=== PATIENT | male | born 1960 | race Caucasian/White ===

== ENCOUNTER 2025-01-03 19:05 | Inpatient (IN) | payer BC, SELFPAY ==
[2025-01-03] VITALS (12 sets, daily range): BP systolic 100–139; BP diastolic 76–108; PULSE 68–106; RESP 15–24; TEMP 36.7–36.9; O2SAT 93–98; BMI 26.4
--- NOTE | 2025-01-03 19:16 | ECG_ITS ---
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1960 Requested By: Raciel Hagan Order Number: [id number] Reading MD: NIRMAL EISENBERG Measurements Intervals [place] Rate: 198 P: 0 MD: 0 QRS: 94 QRSD: 124 T: -63 QT: 227 QTc: 412 Interpretive Statements SUPRAVENTRICULAR TACHYCARDIAW WITH ABBERENT CONDUCTION RIGHT BUNDLE BRANCH BLOCK [120+ ms QRS DURATION, UPRIGHT V1, 40+ ms S IN I/aVL/V4/V5/V6] ST DEVIATION AND MODERATE T-WAVE ABNORMALITY, CONSIDER LATERAL ISCHEMIA [-0.1+ mV T-WAVE IN I/aVL/V5/V6] ST DEVIATION AND MODERATE T-WAVE ABNORMALITY, CONSIDER INFERIOR ISCHEMIA [-0.1+ mV T-WAVE IN II/aVF] CRITICAL TEST RESULT No previous ECG available for comparison Electronically Signed On 01-11-2025 21:40:33 CDT by NIRMAL EISENBERG [email or web address]
--- NOTE | 2025-01-03 19:17 | XRR_ITS ---
PROCEDURE INFORMATION: Exam: XR Chest Exam date and time: 01/03/2025 7:22 PM Age: 64 years old Clinical indication: Pain; Chest pressure; Prior surgery; Surgery date: 6+ months; Surgery type: Stent in heart; Additional info: Cp TECHNIQUE: Imaging protocol: Radiologic exam of the chest. Views: 1 view. COMPARISON: No relevant prior studies available. FINDINGS: Lungs: Mild left basilar linear atelectasis versus scarring. No consolidation. Pleural spaces: Unremarkable. No pleural effusion. No pneumothorax. Heart/Mediastinum: Unremarkable. No cardiomegaly. Bones/joints: Thoracic spondylosis. XR/XR chest 1V portable [id number] IMPRESSION: No acute findings.
[2025-01-03 19:28] LABS: Basophils # 0.1 10^3/uL (0.0-0.1); Basophils % 0.9 %; Eosinophils % 0.3 %; Hematocrit 42.5 % (37-53); Lymphocytes # 1.5 10^3/uL (0.8-4.8); Mean Corpuscular HGB Conc 33.4 g/dL (30-55); Mean Corpuscular Volume 95.7 fl (82-101); Mean Platelet Volume 9.5 fL (7.4-10.4); Monocytes # 0.9 10^3/uL (0.2-0.9); Monocytes % 9.2 %; Neutrophils # 6.85 10^3/uL (1.8-7.7); Neutrophils % 73.3 %; Nucleated Red Blood Cells % 0 %; Platelet Count 289 10^3/cmm (157-399); Red Blood Count 4.44 10^6/uL (3.85-5.65); Red Cell Distribution Width 12.8 % (12.1-15.1); White Blood Count 9.35 10^3/uL (3.29-11.43)
[2025-01-03] MEDS: aspirin 81 mg Chew Tablet 324 MG PO (19:33)
[2025-01-03] MEDS: sodium chloride 0.9% 1,000 ML 999 ML IV (19:33)
[2025-01-03 19:41] LABS: INR 0.89 (0.8-1.2)
[2025-01-03 19:42] LABS: Partial Thromboplastin Time 26.4 SECONDS (23.9-36.7)
--- NOTE | 2025-01-03 19:48 | ED_ITS ---
HPI - Chest Pain 2 General: Chief Complaint: Chest Pain Stated Complaint: CP Time Seen by Provider: 01/03/25 19:09 History of Present Illness: 64-year-old male patient with a history of coronary disease. Tells me he had a stent put in his right coronary artery in 2005. No interventions since. 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 He felt well prior. No prior illnesses. Mild shortness of breath. Symptoms are improved currently. Related Data Allergies Allergy/AdvReac Type Severity Reaction Status Date / Time atorvastatin (From Lipitor) Allergy ADR-Cramping Verified 01/03/25 19:26 of the Muscles Physical Exam 2 Const: COMMON NORMALS: no acute distress GENERAL APPEARANCE: cooperative; not ill appearing and not frail appearing HENMT: COMMON NORMALS: normocephalic, atraumatic and Normal external nose present HEAD & SCALP: normocephalic and atraumatic FACE & SINUS: normal facial exam and face symmetric NOSE: Normal external nose present Eye: COMMON NORMALS: Equal, round and reactive pupils present and EOMs intact bilaterally PUPIL: Yes Equal, round and reactive pupils present Neck/C-Spine: GENERAL: Yes trachea midline Chest: CHEST: Yes Symmetrical chest wall rise Resp: COMMON NORMALS: normal respiratory effort, No retractions, No use of accessory muscles and clear to auscultation bilaterally AUSCULTATION: clear to auscultation bilaterally Cardio: RATE: tachycardic RHYTHM: abnormal rhythm irregularly irregular GI: COMMON NORMALS: Normal to inspection, nondistended, normoactive bowel sounds present Extremity: COMMON NORMALS: no pedal edema Neuro: DEREK COMA SCALE: document GCS findings [place] coma scale eye opening: Spontaneous Derek coma scale verbal response: Orientated Derek coma scale motor response: Obey commands [place] coma scale total score: 15 S ENSORY EXAM: Yes extremities (intact) Psych: COMMON NORMALS: speech normal SPEECH: Yes normal speech Skin: COMMON NORMALS: no rashes or lesions noted GENERAL SKIN EXAM: no rashes or lesions noted Course 2 Vital Signs: Vital signs: Vital Signs Temperature 98.1 F 01/03/25 19:13 Pulse Rate 106 H 01/03/25 19:13 Respiratory Rate 22 H 01/03/25 19:13 Blood Pressure 135/90 01/03/25 19:13 Pulse Oximetry 96 01/03/25 19:13 Oxygen Delivery Me thod Room Air 01/03/25 19:13 MDM - Chest Pain Medical Decision Making Patient presents essentially in rapid atrial fibrillation, although the rate is still fast, diagnostics are difficult. On presentation to the room, his rate is in the low 90s. He has episodes of what appears to be SVT on the monitor with significantly increased heart rate, but also episodes of significant pauses with temporary rates in the mid 40s. Because of this, rate lowering drugs such as adenosine, sotalol, diltiazem are not used. Similarly, avoiding a bolus dose of amiodarone, as could invoke an escape pause. Instead, we will elect to start amiodarone drip at 1 mg/min. Also starting fluids, which may be the cause or culprit. CBC is normal. No acute ST wave changes on EKG or monitor once the patient is slowed down. Spoke with cardiology. They agree with treatment thus far. Recommendations are Lovenox, continued amiodarone, fluid, urine drug screen for completeness. Spoke with hospitalist. He will go to the ICU. Lab Data 01/03/25 19:19 01/03/25 19:19 Radiology Impressions Chest X-Ray 01/03/25 19:17 IMPRESSION: No acute findings. Laboratory Results WBC 9.35 10^3/uL (3.29-11.43) 01/03/25 19:19 RBC 4.44 10^6/uL (3.85-5.65) 01/03/25 19:19 Hgb 14.20 g/dL (11.27-16.99) 01/03/25 19:19 Hct 42.5 % (37-53) 01/03/25 19:19 MCV 95.7 fl (82-101) 01/03/25 19:19 MCH 32.0 pg (27-33) 01/03/25 19:19 MCHC 33.4 g/dL (30-55) 01/03/25 19:19 RDW 12.8 % (12.1-15.1) 01/03/25 19:19 Plt Count 289 10^3/cmm (157-399) 01/03/25 19:19 MPV 9.5 fL (7.4-10.4) 01/03/25 19:19 Neut % (Auto) 73.3 % 01/03/25 19:19 Lymph % (Auto) 16.0 % 01/03/25 19:19 Gove % (Auto) 9.2 % 01/03/25 19:19 Eos % (Auto) 0.3 % 01/03/25 19:19 Baso % (Auto) 0.9 % 01/03/25 19:19 Neut # (Auto) 6.85 10^3/uL (1.8-7.7) 01/03/25 19:19 Lymph # (Auto) 1.5 10^3/uL (0.8-4.8) 01/03/25 19:19 Gove # (Auto) 0.9 10^3/uL (0.2-0.9) 01/03/25 19:19 Eos # (Auto) 0.0 10^3/uL (0.0-0.8) 01/03/25 19:19 Baso # (Auto) 0.1 10^3/uL (0.0-0.1) 01/03/25 19:19 Nucleated RBC % (auto) 0 % 01/03/25 19:19 Nucleated RBCs # 0.0 /100WBC 01/03/25 19:19 PT 12.70 SECONDS (12.1-14.9) 01/03/25 19:19 INR 0.89 (0.8-1.2) 01/03/25 19:19 APTT 26.4 SECONDS (23.9-36.7) 01/03/25 19:19 Sodium 136 mmol/L (136-145) 01/03/25 19:19 Potassium 4.3 mmol/L (3.5-5.1) 01/03/25 19:19 Chloride 101 mmol/L (98-107) 01/03/25 19:19 Carbon Dioxide 22 mmol/L (22-29) 01/03/25 19:19 Anion Gap 17.3 (5-19) 01/03/25 19:19 BUN 21 mg/dL (8-23) 01/03/25 19:19 Creatinine 0.7 mg/dL (0.7-1.2) 01/03/25 19:19 GFR Calculation 113.9 mL/min (90-130) 01/03/25 19:19 Glucose 136 mg/dL (65-115) H 01/03/25 19:19 Calculated Osmolality 287 mOsm/kg (285-295) 01/03/25 19:19 Calcium 9.3 mg/dL (8.5-10.5) 01/03/25 19:19 Total Bilirubin 0.3 mg/dL (0.15-1.2) 01/03/25 19:19 AST 23 U/L (0-40) 01/03/25 19:19 ALT 18 U/L (0-41) 01/03/25 19:19 Alkaline Phosphatase 69 U/L (40-130) 01/03/25 19:19 Creatine Kinase 313 U/L (39-308) H 01/03/25 19:19 Troponin T Baseline 18 ng/L (0-15) H 01/03/25 19:19 NT-Pro-B Natriuret Pep 280 pg/mL (0-125) H 01/03/25 19:19 Total Protein 7.4 g/dL (6.6-8.7) 01/03/25 19:19 Albumin 4.7 g/dL (3.5-5.2) 01/03/25 19:19 Globulin 2.7 g/dL (1.3-4.6) 01/03/25 19:19 All radiology interpretation(s) finalized by discharge Critical Care Time 2 Critical Care Time: Critical Care Time: Yes Total Critical Care Time: 35 Attestation: This case had a high probability of a clinically significant, sudden, or life threatening deterioration of this patient's condition which required my full and direct attention, intervention and personal management. Time is independent of any procedures performed. 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
[2025-01-03 19:51] LABS: Alanine Aminotransferase 18 U/L (0-41); Albumin Level 4.7 g/dL (3.5-5.2); Alkaline Phosphatase 69 U/L (40-130); Anion Gap 17.3 (5-19); Aspartate Amino Transferase 23 U/L (0-40); Blood Urea Nitrogen 21 mg/dL (8-23); Calcium 9.3 mg/dL (8.5-10.5); Carbon Dioxide 22 mmol/L (22-29); Chloride 101 mmol/L (98-107); Creatine Phosphokinase 313 U/L (39-308); Globulin 2.7 g/dL (1.3-4.6); Glomerular Filtration Rate 113.9 mL/min (90-130); Glucose 136 mg/dL (65-115); Osmolality Calculated 287 mOsm/kg (285-295); Potassium 4.3 mmol/L (3.5-5.1); Sodium 136 mmol/L (136-145); Total Bilirubin 0.3 mg/dL (0.15-1.2); Total Protein 7.4 g/dL (6.6-8.7)
[2025-01-03 19:52] LABS: Troponin(5th) Baseline 18 ng/L (0-15)
[2025-01-03 19:59] LABS: NT Pro B Type Natriuretic Pept 280 pg/mL (0-125)
--- NOTE | 2025-01-03 20:41 | P.HP_ITS ---
Providers/Chief Complaint 2 Admitting Physician: Clarisse Nye MD Chief Complaint: CP History of Present Illness Leela Elizondo is a 64 year old male w/ CAD s/p 1 stent to the RCA in 2003 and chronic back pain, who presents to the ED on 01/03/2025 w/ complaints of pain between his shoulder. The patient was at the [employer], where he was an active participant. 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 He sat down, consumed a bottle of water but his light headedness kept getting worse, so his friend brought him to the ED. He denies dizziness, syncope, palpitations or chest pain/pressure. He states that he did have discomfort in his back, between his shoulder blades. He denies SOB, cough, wheezing, visual disturbances, fever, chills, GI or symptoms. In the ED, his vital signs were significant for tachycardia to 106bpm and tachypneic to 22. His initial EKG showed a A-fib with RVR, w/HR of 198. His CBC was unremarkable. According to the ED physician, the patient's HR then decreased to 90s then bradycardic to 45bpm then back up then 90s and then tachycardic again. His initial troponin was minimally elevated to 18, and repeat minimally decreased. His proBNP was 280. His CK was 313. His UA was unremarkable except for a few hyaline casts. His UDS was negative. His CXR showed no acute findings. Given his erratic HR and arrhythmia, he was given 1L NS bolus, and started on an amiodarone infusion. Cardiology was called by the ED physician, who was in agreement with amiodarone infusion and admission to the ICU for further monitoring & management. Review of Systems 2 Narrative: Constitutional: (-) fever(s), (-) chills, (-) body aches, (-) change in appetite, (-) change in weight, (-) fatigue, (-) malaise, (-) night sweats, (-) diaphoresis Eyes: (-) change in vision, (-) blurry vision, (-) diplopia, (-) floaters, ENT: (-) ear pain, (-) ear discharge, (-) aural fullness, (-) tinnitus, (-)nasal discharge, (-)nasal congestion, (-) post nasal drip, (-)dysphagia, (- )odynophagia, (-)hoarseness, Card: (-) Chest pain, (-) palpitations, (-) pedal edema, (-) orthopnea, (-) lightheadedness, (-) syncope, (-) pre-syncope, (-) leg pain with exertion Resp: (-)dyspnea, (-)dyspnea on exertion, (-) cough, (-) wheezing, (-) hemoptysis GI: (-) abdominal pain, (-) nausea, (-) vomiting, (-) hematemesis, (-) diarrhea, (-) constipation, (-) hematochezia, (-) melena : (-) flank pain, (-) dysuria, (-) hematuria, (-) urinary urgency, (-) urinary frequency, (-)oliguria, (-) difficulty voiding, (-) urinary incontinence, (-) urinary hesitancy, (-) dribbling, (-) nocturia, (-) genital pruritis, (-)vaginal odor, (-) vaginal discharge, (-) vaginal bleeding, (-) dysmenorrhea MSK: (-) myalgias, (-) arthralgias Skin/Breast: (-) rash, (-) sores, (-) new lesions, (-) breast tenderness, (-) breast pain, or (-) nipple discharge Neuro: (-) headaches, (-) dizziness, (-) generalized weakness, (-) weakness in the extremities, (-) numbness in extremities, (-) tingling, (-) frequent falls, (-) Slurred speech present, (-) seizure-like activity, (-) involuntary movements, (-) restless legs Psych: (-) anxiety, (-) depression, (-)paranoia, (-) visual hallucinations, (-) auditory hallucinations, (-)tactile hallucinations, (-) suicidal ideation, (-) homicidal ideation Endo: (-) polyuria, (-) polydipsia, (-) polyphagia, (-)cold intolerance, (-) heat intolerance Heme/Lymph: (-) easy bruising, (-) easy bleeding, (-) petechiae, (-) purpura, (- ) enlarged lymph nodes, (-) tender lymph nodes Allergy/Immunlogy: (-) food intolerance, (-) hives/urticaria, (-) itchy/watery eyes, (-) tongue/throat swelling, (-) facial swelling, Const: Reports: malaise; Denies: fever(s), chills, change in appetite, fatigue or diaphoresis Eyes: Denies: change in vision ENMT: Reports: other (no dysphagia or sore throat); Denies: odynophagia, nasal discharge or nasal congestion Card: Reports: lightheadedness; Denies: chest pain, palpitations or syncope Resp: Denies: dyspnea, productive cough or wheezing GI: Denies: abdominal pain, nausea, vomiting, diarrhea, constipation, hematochezia or melena : Denies: dysuria, urinary frequency, urinary urgency or hematuria Musc: Reports: other (myalgias); Denies: joint pain Skin/Breast: Denies: rash, sores or new lesions Neuro: Denies: headache(s) or dizziness Endo: Denies: polyuria, polydipsia, cold intolerance or heat intolerance Nader/Lymph: Reports: easy bruising; Denies: easy bleeding Medications/Allergies Home Medications ?Medication ?Instructions ?Recorded ?Confirmed ?Last Taken ?Type aspirin 81 mg tablet 81 mg PO DAILY 01/04/2512/0801/03/25 08:00 History lisinopril 20 mg tablet 20 mg PO 1XD 01/04/2501/03/25 08:00 History 20 metoprolol succinate 50 mg 50 mg PO 1XD 01/04/2501/0401/03/25 08:00 History tablet,extended release 24 hr 50 mg Allergies Allergy/AdvReac Type Severity Reaction Status Date / Time atorvastatin (From Lipitor) Allergy ADR-Cramping Verified 01/03/25 19:26 of the Muscles PFSH Acute 2 PFSH: Medical History (Updated 01/04/25 @ 04:14 by Clarisse Nye MD) Hyperlipidemia HTN (hypertension) Coronary artery disease Surgical History (Updated 01/04/25 @ 02:45 by Clarisse Nye MD) Stented coronary artery s/p 1 stent to the RCA in 2003 at [facility] in [place], [place] Family History (Updated 01/04/25 @ 02:47 by Clarisse Nye MD) Father Congestive heart failure (CHF) Heart disease Father had a Myocardial Infarction Social History (Updated 01/04/25 @ 02:54 by Clarisse Nye MD) Smoking and tobacco/nicotine status: former use of tobacco/nicotine Quit status (tobacco/nicotine): has quit using Year quit tobacco: 2003 Former quit date comment: smoked 1ppd x 20-25yrs. Alcohol intake: current Alcohol intake frequency: other Alcohol type: beer Alcohol use comment: 4-10 beers total in a weekend. Substance/Drug Use: never Vitals/I&O/Wt Last Vital Signs Temp 98.1 F 01/03/25 19:13 Pulse 106 H 01/03/25 19:13 Resp 22 H 01/03/25 19:13 BP 135/90 01/03/25 19:13 Pulse Ox 96 01/03/25 19:13 O2 Del Method Room Air 01/03/25 19:13 Weight last 48 hrs Weight 86.183 kg Physical Exam 2 Narrative: Constitutional: GENERAL APPEARANCE: cooperative, comfortable and appears older than stated age; not combative, not disheveled, not ill appearing and not frail appearing HENT: HEAD & SCALP: normocephalic and atraumatic; NOSE: external nose not normal EXTERNAL EAR: no external ears normal MOUTH: Normal oral and palatal mucosa present THROAT: posterior oropharynx normal Eye: PERRL, EOMI, normal conjunctiva b/l Neck: normal visual inspection, trachea midline, No anterior neck swelling, No tracheal deviation, no submandibular swelling, Thyroid normal , cervical ROM normal Lymph: no cervical, supraclavicular LAD Resp: no use of accessory muscles, CTAB, no w/r/r Cardio: RRR, no m/r/g, or clicks. 2+ radial and DP pulses. GI: normoactive bowel sounds, non-tender, non-distended, no guarding, no rigidity, no rebound tenderness, no hepatosplenomegaly. : (-) Patel in place draining urine Back/Pelvis: Deferred Extremity: No clubbing, No cyanosis and No edema Neuro: AO to person, place and time. CN normal except as noted. Normal gait present. 5/5 motor strength present throughout. Normal motor muscle tone present throughout. No tremor noted. No motor abnormalities present. No motor fasciculations present Psych: APPEARANCE: Yes grossly normal ATTITUDE: Yes calm and Yes engaged ACTIVITY/MOTOR BEHAVIOR: Yes appropriate eye contact SPEECH: Yes normal speech MOOD & AFFECT: Yes euthymic mood THOUGHT PROCESS: Normal thought process present THOUGHT CONTENT: Yes Normal thought content present ATTENTION/CONCENTRATION: Yes attention grossly intact MEMORY/COGNITION: Yes memory grossly intact Data 01/03/25 19:19 01/03/25 19:19 A&P Assessment and plan (1) Atrial fibrillation with rapid ventricular response: (2) Chest pain: Plan Leela Elizondo is a 64 year old man w/ CAD s/p 1 stent to the RCA in 2003 and chronic back pain, who presents to the ED on 01/03/2025 w/ complaints of light headedness after participating in [employer] earlier in the day. #Afib w/ RVR: - On Amiodarone drip. Converted to Sinus Rhythm. Will consult Cardiology in the AM. - CHADSVASc of 2 #Possible Acute Coronary Syndrome: ST depressions in Leads I & AVL and TWI in V1, V3 and V4. It is unclear whether these changes are new or not. - Ordered repeat EKG. Or - Continue to trend Troponin. F/u Lipid panel, TSH, free T4, ECHO. - Resumed patient's home meds of Aspirin, Metop succinate, and ordered a lower dose of his home Lisinopril; although the patient is NPO as from 3am until he sees the Blue Split Trimmer. - Continue full dose Lovenox #Dehydration - Ordered 1L at 250cc/hr and another 1L to follow at 100cc/hr. DVT ppx: Lovenox PDMP PDMP Reviewed: Not Reviewed Attestations 2 Medical Necessity Statement*: Patient needs to be hospitalized for greater than 2 midnights for Afib w/ RVR, Acute coronary syndrome and Dehydration. Time Spent in Patient Care: > Coding Level of Care Code Critical Care >/= 30 minutes Critical care time (in minutes): 70 Other Coding Information Focused coding review requested Diagnoses Atrial fibrillation with rapid ventricular response I48.91 Chest pain R07.9
--- NOTE | 2025-01-03 21:17 | ECG_ITS ---
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1960 Requested By: Raciel Hagan Order Number: [id number] Roland MD: NIRMAL EISENBERG Measurements Intervals [place] Rate: 86 P: 5 IL: 155 QRS: -15 QRSD: 146 T: -19 QT: 404 QTc: 483 Interpretive Statements SINUS RHYTHM WITH FREQUENT SUPRAVENTRICULAR PREMATURE COMPLEXES RIGHT BUNDLE BRANCH BLOCK [120+ ms QRS DURATION, UPRIGHT V1, 40+ ms S IN I/aVL/V4/V5/V6] MODERATE VOLTAGE CRITERIA FOR LVH, CONSIDER NORMAL VARIANT [MEETS CRITERIA IN ONE OF: R(aVL), S(V1), R(V5), R(V5/V6)+S(V1)] INFERIOR MYOCARDIAL INFARCTION , OF INDETERMINATE AGE [40+ ms Q WAVE AND/OR ST/T ABNORMALITY IN II/aVF] Compared to ECG 01/03/2025 19:07:20 Myocardial infarct finding now present Atrial fibrillation no longer present T-wave abnormality no longer present Possible ischemia no longer present Electronically Signed On 01-11-2025 21:47:44 CDT by NIRMAL EISENBERG [email or web address] [id number]
[2025-01-03 21:25] LABS: Troponin 5 2HR 17.08 ng/L (0-15)
[2025-01-03 21:27] LABS: Troponin 5 2HR Delta -0.92 ABS# (0-10)
[2025-01-03 22:00] LABS: Bacteria Urine None Seen /hpf; Hyaline Casts Urine 0-4 /lpf; RBC Urine 0-2 /hpf (0-2); Squamous Epithelial Cell Urine 0-5 /hpf (0-5); WBC Urine 0-5 /hpf (0-5)
[2025-01-03 22:01] LABS: Add Urine Microscopic? YES; Bilirubin Urine Neg (Negative); Blood Urine Neg (Negative); Glucose Urine UA Norm (Normal); Ketones Urine Negative (Negative); Leukocyte Esterase Urine Negative (Negative); Nitrate Urine Negative (Negative); Protein Urine Trace (Negative); Specific Gravity, Urine 1.005 (1.005-1.030); Urine Appearance Clear (CLEAR); Urine Color Yellow (Yellow); Urobilinogen Urine Norm (Negative); pH Urine 7 (5-7)
[2025-01-03 22:08] LABS: Amphetamines Screen Urine Negative (Negative); Barbiturates Screen Urine Negative (Negative); Benzodiazepines Screen Urine Negative (Negative); Cocaine Screen Urine Negative (Negative); Opiate Screen Urine Negative (Negative); PCP Screen Urine Negative (Negative); THC Screen Urine Negative (Negative)
[2025-01-03] MEDS: enoxaparin 80 mg/0.8 mL Syringe SUBCUT (22:46)
[2025-01-04] VITALS (48 sets, daily range): BP systolic 90–144; BP diastolic 53–89; PULSE 56–101; RESP 14–27; TEMP 36.5–36.8; O2SAT 92–99
--- NOTE | 2025-01-04 00:10 | USCV_ITS ---
Leela Elizondo Age: 64 Gender: M : 1960 Exam Date: 01/04/2025 10:18 Ordering Phys: Clarisse Nye MD Technologist: Bennett Valenzuela Exam Location: [facility] [place] Indication: chest pain BP: 129 / 77 HR: 70 Rhythm: Sinus Technical Quality: Adequate MEASUREMENTS (Male / Female) Normal Values 2D ECHO LV Diastolic Diameter PLAX 5.3 cm 4.2 - 5.9 / 3.9 - 5.3 cm IVS Diastolic Thickness 1.0 cm 0.6 - 1.0 / 0.6 - 0.9 cm IVS Systolic Thickness 1.9 cm LVPW Diastolic Thickness 1.4 cm 0.6 - 1.0 / 0.6 - 0.9 cm LVPW Systolic Thickness 1.6 cm LVOT Diameter 2.0 cm LV Ejection Fraction 2D Teich 70.2 % LV Ejection Fraction MOD 4C 54.2 % LV Ejection Fraction MOD 2C 67.6 % LV Ejection Fraction 2C AL 67.4 % LA Diameter 3.8 cm RA Systolic Volume 4C AL 35.2 ml RA Systolic Volume 4C MOD 35.5 ml LA Sys Volume AL 40.6 cm cubed LA Sys Volume Index AL 19.7 cm cubed/m squared Aorta at Sinotubular Diameter 2.5 cm M-MODE LA Ao Ratio MM 1.1 AV Cusp Separation MM 1.9 cm DOPPLER AV Peak Velocity 140.0 cm/s LVOT Peak Velocity 68.0 cm/s AV Area Cont Eq vti 2.0 cm squared AV Area Cont Eq pk 1.5 cm squared MV Peak Velocity 79.0 cm/s MV Area PHT 4.7 cm squared Mitral E to A Ratio 1.1 TV Peak Velocity 295.3 cm/s TR Peak Velocity 357.0 cm/s TR Peak Gradient 51.0 mmHg TR Mean Velocity 254.0 cm/s TR Mean Gradient 28.8 mmHg TR Velocity Time Integral 99.2 cm PV Peak Velocity 103.0 cm/s RV Ejection Time 0.3 s FINDINGS Left Ventricle Left ventricle is normal in size. LV systolic function is normal with EF of 55-60%. No regional wall motion abnormalities are seen Right Ventricle Normal in size and function Right Atrium Normal in size Left Atrium Normal in size Mitral Valve Structurally normal mitral valve. Mild mitral regurgitation. Aortic Valve Structurally normal aortic valve. No significant stenosis or regurgitation. Tricuspid Valve Mild tricuspid regurgitation. Pulmonary artery systolic pressure is normal Pulmonic Valve Trace pulmonic regurgitation. Pericardium Normal Aorta Normal in size IVC Not visualized CONCLUSIONS LV systolic function is normal with EF of 55-60% Mild mitral regurgitation Mild tricuspid regurgitation Trace pulmonic regurgitation No comparison studies are available. Fortino Zheng MD (Electronically Signed) Final Date: 04 January 2025 11:00 S
[2025-01-04] MEDS: sodium chloride 0.9% 1,000 ML 250 ML IV (01:04)
--- NOTE | 2025-01-04 01:17 | ECG_ITS ---
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
[2025-01-04 04:21] LABS: Basophils # 0.1 10^3/uL (0.0-0.1); Eosinophils # 0.1 10^3/uL (0.0-0.8); Eosinophils % 1.7 %; Hematocrit 39.5 % (37-53); Lymphocytes # 2.7 10^3/uL (0.8-4.8); Mean Corpuscular HGB Conc 31.9 g/dL (30-55); Mean Corpuscular Volume 97.1 fl (82-101); Mean Platelet Volume 10.4 fL (7.4-10.4); Monocytes # 0.7 10^3/uL (0.2-0.9); Monocytes % 9.3 %; Neutrophils # 3.66 10^3/uL (1.8-7.7); Neutrophils % 50.6 %; Nucleated Red Blood Cells % 0 %; Platelet Count 233 10^3/cmm (157-399); Red Blood Count 4.07 10^6/uL (3.85-5.65); Red Cell Distribution Width 12.9 % (12.1-15.1); White Blood Count 7.22 10^3/uL (3.29-11.43)
[2025-01-04 04:36] LABS: Estmated Average Glucose 123; Hemoglobin A1C 5.9 % (4.0-6.0)
[2025-01-04 04:37] LABS: INR 1.01 (0.8-1.2)
[2025-01-04 04:38] LABS: Partial Thromboplastin Time 34.5 SECONDS (23.9-36.7)
[2025-01-04 04:47] LABS: Creatine Phosphokinase 246 U/L (39-308)
[2025-01-04 04:50] LABS: Alanine Aminotransferase 15 U/L (0-41); Albumin Level 3.9 g/dL (3.5-5.2); Alkaline Phosphatase 58 U/L (40-130); Anion Gap 13.8 (5-19); Aspartate Amino Transferase 18 U/L (0-40); Blood Urea Nitrogen 16 mg/dL (8-23); Calcium 8.4 mg/dL (8.5-10.5); Carbon Dioxide 23 mmol/L (22-29); Chloride 106 mmol/L (98-107); Chol HDL Ratio 3.84 mg/dL (1.0-5.00); Cholesterol 192 mg/dL (0-200); Globulin 2.5 g/dL (1.3-4.6); Glomerular Filtration Rate 136.1 mL/min (90-130); Glucose 151 mg/dL (65-115); HDL Cholesterol 50 mg/dL (60-100); LDL Cholesterol Calculated 121 mg/dL (50-129); LDL HDL Ratio 2.42 RATIO (0.00-3.22); Magnesium 2.3 mg/dL (1.7-2.3); Osmolality Calculated 292 mOsm/kg (285-295); Potassium 3.8 mmol/L (3.5-5.1); Sodium 139 mmol/L (136-145); Thyroid Stimulating Hormone 2.26 uIU/mL (0.27-4.20); Total Bilirubin 0.3 mg/dL (0.15-1.2); Total Protein 6.4 g/dL (6.6-8.7); Triglycerides 106 mg/dL (0-150)
[2025-01-04] MEDS: sodium chloride 0.9% 1,000 ML 100 ML IV (05:32)
[2025-01-04 07:31] LABS: Troponin T (5th) Once 19 ng/L (0-15)
[2025-01-04] MEDS: sennosides 8.6 mg Tablet 17.2 MG PO (09:11)
[2025-01-04] MEDS: lisinopril 10 mg Tablet PO (09:11)
[2025-01-04] MEDS: docusate sodium 100 mg Capsule 200 MG PO (09:11)
[2025-01-04] MEDS: aspirin 81 mg Chew Tablet PO (09:11)
[2025-01-04] MEDS: enoxaparin 80 mg/0.8 mL Syringe SUBCUT ×2 (09:12→21:15)
--- NOTE | 2025-01-04 09:32 | PC.NURSE ---
Dr. Schultz to bedside, plan of care discussed.
--- NOTE | 2025-01-04 10:03 | PM.CONSULT ---
Providers/Reason For Consult Consulting Physician/Specialty*: Fortino Zheng MD/ Cardiology Reason for Consult*: Chest pain/ Abnormal stress test Requesting Physician: Dr Zheng Attending Physician: Deirdre Schultz History of Present Illness History of Present Illness Leela Elizondo is a 64 year old male with past medical history of coronary artery disease with RCA stent in 2005 follows with cardiology at [facility] came yesterday to ER with chest pain mainly between shoulder blades in the back. Was found to be in A-fib with RVR. He was placed on amiodarone. EKG shows sinus rhythm now with right bundle branch block. No significant ST-T wave changes. Once converted back to sinus rhythm, did not had more chest pain episodes. Troponins have not trended up significantly. He was outdoors yesterday and feels may have been dehydrated. Review of Systems Narrative: CONSTITUTIONAL: No fever chills weight loss or gain or night sweats. [] HEENT: Normocephalic, atraumatic.[] RESPIRATORY: No cough, sputum, hemoptysis or wheezing.[] CARDIOVASCULAR:Chest pain GI: no nausea vomiting diarrhea. [] CORPORATE CONSULTANT: No numbness, tingling, weakness or loss of function in any part of the body. [] MUSCULOSKELETAL: No knee or joint pain or rashes. [] Medications/Allergies Home Medications ?Medication ?Instructions ?Recorded ?Confirmed ?Last Taken ?Type aspirin 81 mg tablet 162 mg PO DAILY 01/04/25 01/04/25 01/03/25 08:00 History cholecalciferol (vitamin D3) 25 1,000 unit PO DAILY 01/04/25 01/04/25 01/03/25 08:00 History mcg (1,000 unit) tablet (Vitamin D3) lisinopril 20 mg tablet 20 mg PO 1XD 01/04/25 01/04/25 01/03/25 08:00 History 20 metoprolol succinate 50 mg 50 mg PO 1XD 01/04/25 01/04/25 01/03/25 08:00 History tablet,extended release 24 hr 50 mg Allergies Allergy/AdvReac Type Severity Reaction Status Date / Time atorvastatin (From Lipitor) Allergy ADR-Cramping Verified 01/03/25 19:26 of the Muscles Current Medications Generic Name Dose Route Start Last Admin Trade Name Freq PRN Reason Stop Dose Admin Aspirin 81 mg 01/04/25 09:00 01/04/25 09:11 Aspirin 81 Mg Chew Tablet PO 81 mg DAILY NATALEE Administration Docusate Sodium 200 mg 01/04/25 09:00 01/04/25 09:11 Docusate Sodium 100 Mg Capsule PO 200 mg DAILY NATALEE Administration Enoxaparin Sodium 80 mg 01/04/25 10:00 01/04/25 09:12 Enoxaparin 80 Mg/0.8 Ml Syringe SUBCUT 80 mg Q12H NATALEE Administration Amiodarone HCl/Dextrose 360 mg in 200 mls @ 0 mls/hr 01/03/25 19:17 01/04/25 01:48 Nexterone IV 0.5 mg/min .Q0M NATALEE 16.67 mls/hr Administration Protocol Per Protocol Sodium Chloride 1,000 mls @ 100 mls/hr 01/04/25 06:00 01/04/25 05:32 Sodium Chloride 0.9% IV 01/04/25 15:59 100 mls/hr .Q10H NATALEE Administration Lisinopril 10 mg 01/04/25 09:00 01/04/25 09:11 Lisinopril 10 Mg Tablet PO 10 mg DAILY NATALEE Administration Senna 17.2 mg 01/04/25 09:00 01/04/25 09:11 Sennosides 8.6 Mg Tablet PO 17.2 mg DAILY NATALEE Administration PFSH Acute PFSH: Medical History (Updated 01/04/25 @ 10:49 by Fortino Zheng M.D) HTN (hypertension) Hyperlipidemia Coronary artery disease Surgical History Stented coronary artery s/p 1 stent to the RCA in 2003 at [facility] in [place], [place] Family History Father Congestive heart failure (CHF) Heart disease Father had a Myocardial Infarction Social History Smoking and tobacco/nicotine status: former use of tobacco/nicotine Quit status (tobacco/nicotine): has quit using Year quit tobacco: 2003 Former quit date comment: smoked 1ppd x 20-25yrs. Alcohol intake: current Alcohol intake frequency: other Alcohol type: beer Alcohol use comment: 4-10 beers total in a weekend. Substance/Drug Use: never Vitals/I&O/Wt Last Vital Signs Temp 97.9 F 01/04/25 08:00 Pulse 67 01/04/25 09:00 Resp 26 H 01/04/25 09:00 BP 129/77 01/04/25 09:00 Pulse Ox 97 01/04/25 09:00 O2 Del Method Room Air 01/04/25 08:00 01/03/25 01/04/25 01/04/25 22:59 06:59 14:59 Intake Total 1000 / 1000 1318.869 / 2318.869 Output Total 750 / 750 Balance 1000 / 1000 568.869 / 1568.869 Weight last 48 hrs Weight 185 lb 3 oz Weight 185 lb 3.013 oz Weight 190 lb Physical Exam Narrative: GENERAL: Patient is alert, awake and oriented x3. [] NECK: No jugular vein distension. [] HEENT: No cyanosis. No icterus. No pallor. [] HEART: Regular S1 and S2. No murmur, rub or gallop. [] LUNGS: Clear to auscultate bilaterally. [] CENTRAL NERVOUS SYSTEM: Grossly nonfocal. [] EXTREMITIES: Lower extremities with 1+ edema bilaterally. Data 01/04/25 03:21 01/04/25 03:21 A&P Assessment and plan (1) Chest pain: (2) Atrial fibrillation with rapid ventricular response: (3) Coronary artery disease: (4) HTN (hypertension): (5) Hyperlipidemia: Plan Patient had presented with chest discomfort radiating to the back however was in A-fib with RVR at that time. Now converted back to sinus rhythm. Continue amiodarone for 24 hours and then switch to p.o. amio. Continue anticoagulation. Troponins are not trended up significantly. No significant ST-T wave changes on EKG. Will obtain Lexiscan tomorrow and if does not show significant ischemia, symptoms are all related to atrial fibrillation. Will need care home anticoagulation. Thank you for involving us with care of this patient. We will continue to follow. Please call with questions. PDMP PDMP Reviewed: Not Reviewed Consult Attestations Medical Necessity Statement: Care expected to cross 2 midnights. Coding Level of Care Code Acute Code for Chg Fwd Diagnoses Chest pain R07.9 Atrial fibrillation with rapid ventricular response I48.91 Coronary artery disease I25.10 HTN (hypertension) I10 Hyperlipidemia E78.5
[2025-01-04] MEDS: metoprolol succinate ER (24 HR) 25 mg Tablet PO (10:55)
--- NOTE | 2025-01-04 10:57 | PC.NURSE ---
Dr. Hernandez to bedside, plan of care discussed with patient. Notified Dr. Hernandez that Metoprolol 50mg held this AM, order given to change it to 25mg daily with first dose this morning, Start PO Amiodarone at 1900 today and then DC IV Amiodarone.
--- NOTE | 2025-01-04 16:43 | P.PN_ITS ---
Subjective 2 Subjective: 64-year-old male with history of CAD s/p RCA stent (2003) who presented with interscapular back pain, lightheadedness, and new-onset atrial fibrillation with RVR following [facility] Initial workup showed minimally elevated troponin (18) with subsequent decrease, normal proBNP (280), and unremarkable imaging. Patient was started on amiodarone infusion with successful conversion to NSR. Currently hemodynamically stable. Vitals/I&O/Wt Last Vital Signs Temp 97.7 F 01/04/25 16:00 Pulse 74 01/04/25 16:00 Resp 22 H 01/04/25 16:00 BP 144/87 01/04/25 16:00 Pulse Ox 94 01/04/25 16:00 O2 Del Method Room Air 01/04/25 16:00 01/04/25 01/04/25 01/04/25 06:59 14:59 22:59 Intake Total 1318.869 / 2318.869 1415.033 / 1415.033 996.667 / 2411.700 Output Total 750 / 750 1750 / 1750 Balance 568.869 / 1568.869 -334.967 / -334.967 996.667 / 661.700 Weight last 48 hrs Weight 84 kg Weight 84 kg Weight 86.183 kg Physical Exam 2 Narrative: Constitutional: Sitting up, NAD HEENT: Grossly unremarkable Resp: no use of accessory muscles, CTAB, no w/r/r Cardio: RRR, no m/r/g, or clicks. 2+ radial and DP pulses. GI: normoactive bowel sounds, non-tender, non-distended, no guarding, no rigidity, no rebound tenderness, no hepatosplenomegaly. Extremity: No clubbing, No cyanosis and No edema Neuro: Grossly unremarkable Data 01/04/25 03:21 01/04/25 03:21 A&P Assessment and plan (1) Atrial fibrillation with rapid ventricular response: (2) Chest pain: Plan # Atrial Fibrillation with RVR New-onset atrial fibrillation with RVR, possibly triggered by physical exertion and dehydration. Successfully converted to NSR with amiodarone. Given history of CAD, this arrhythmia warrants evaluation for underlying cardiac ischemia. - ECHO showed-> LV systolic function is normal with EF of 55-60% Plan: -Complete 24-hour amiodarone infusion then transition to oral amiodarone 400 mg BID - Continue metoprolol XL 25 mg daily for rate control - Anticoagulation with enoxaparin 80 mg SQ Q12 during hospitalization - Transition to apixaban at discharge for stroke prevention # Possible Acute Coronary Syndrome - Interscapular pain with minimal troponin elevation in a patient with known CAD raises concern for possible ACS, though atypical presentation without chest pain.12 - Serial troponins to confirmed downward trend Plan: - Lexiscan stress test as planned to evaluate for inducible ischemia - Continue aspirin 81 mg daily - Continue lisinopril 10 mg daily # Chronic Back Pain - Continue home pain regimen PDMP PDMP Reviewed: Not Reviewed Attestations 2 Medical Necessity Statement*: Patient needs to be hospitalized for greater than 2 midnights for Afib w/ RVR, Acute coronary syndrome and Dehydration. Time Spent in Patient Care: > Coding Level of Care Code Acute Code for [facility] Diagnoses Atrial fibrillation with rapid ventricular response I48.91 Chest pain R07.9
[2025-01-04] MEDS: amiodarone 200 mg Tablet 400 MG PO (18:56)
[2025-01-05] VITALS (14 sets, daily range): BP systolic 101–143; BP diastolic 59–96; PULSE 50–81; RESP 13–23; TEMP 36.3–36.8; O2SAT 94–98
--- NOTE | 2025-01-05 | ECG_ITS ---
[facility] Test Date: 2025-01-05 Pat Name: Leela Elizondo Department: Room: [facility] Gender: Male Concrete Paver: : 1960 Requested By: Fortino Zheng Order Number: [id number] Reading MD: Interpretive Statements Lung unchanged pre/post procedure; Intraprocedure shortess of breath; Symptoms resoled by discharge [email or web address]
[2025-01-05 05:24] LABS: Basophils # 0.1 10^3/uL (0.0-0.1); Basophils % 1.4 %; Eosinophils # 0.2 10^3/uL (0.0-0.8); Eosinophils % 2.8 %; Lymphocytes # 2.7 10^3/uL (0.8-4.8); Lymphocytes % 37.5 %; Mean Corpuscular HGB Conc 31.2 g/dL (30-55); Mean Corpuscular Hemoglobin 30.8 pg (27-33); Mean Corpuscular Volume 98.8 fl (82-101); Mean Platelet Volume 10.5 fL (7.4-10.4); Monocytes # 0.7 10^3/uL (0.2-0.9); Monocytes % 9.1 %; Neutrophils # 3.52 10^3/uL (1.8-7.7); Neutrophils % 48.9 %; Nucleated Red Blood Cells % 0 %; Platelet Count 228 10^3/cmm (157-399); Red Blood Count 4.15 10^6/uL (3.85-5.65); White Blood Count 7.18 10^3/uL (3.29-11.43)
[2025-01-05 05:42] LABS: Alanine Aminotransferase 14 U/L (0-41); Albumin Level 3.7 g/dL (3.5-5.2); Alkaline Phosphatase 55 U/L (40-130); Anion Gap 15.2 (5-19); Aspartate Amino Transferase 16 U/L (0-40); Blood Urea Nitrogen 12 mg/dL (8-23); Calcium 8.6 mg/dL (8.5-10.5); Carbon Dioxide 23 mmol/L (22-29); Chloride 105 mmol/L (98-107); Globulin 2.6 g/dL (1.3-4.6); Glomerular Filtration Rate 97.6 mL/min (90-130); Glucose 102 mg/dL (65-115); Magnesium 2.2 mg/dL (1.7-2.3); Osmolality Calculated 288 mOsm/kg (285-295); Potassium 4.2 mmol/L (3.5-5.1); Sodium 139 mmol/L (136-145); Total Bilirubin 0.4 mg/dL (0.15-1.2); Total Protein 6.3 g/dL (6.6-8.7)
[2025-01-05] MEDS: regadenoson 0.4 Mg/5 ml Syringe IVP (08:14)
[2025-01-05] MEDS: docusate sodium 100 mg Capsule 200 MG PO (09:21)
[2025-01-05] MEDS: metoprolol succinate ER (24 HR) 25 mg Tablet PO (09:22)
[2025-01-05] MEDS: aspirin 81 mg Chew Tablet PO (09:22)
[2025-01-05] MEDS: lisinopril 10 mg Tablet PO (09:22)
[2025-01-05] MEDS: enoxaparin 80 mg/0.8 mL Syringe SUBCUT (09:22)
[2025-01-05] MEDS: amiodarone 200 mg Tablet 400 MG PO (09:22)
[2025-01-05] MEDS: sennosides 8.6 mg Tablet 17.2 MG PO (09:23)
--- NOTE | 2025-01-05 10:42 | NMCV_ITS ---
NM eric perf SPECT r/s* [id number] Leela Elizondo Age: 64 Gender: M : 1960 Exam Date: 01/05/2025 07:48 Ordering Phys: Fortino Zheng M.D ([email or web address]) Technologist: DARION Ybarra Exam Location: [facility] Indications: cp STRESS TEST Please [facility] for [facility] IMAGE PROTOCOL Rest/Stress 1 Lexiscan Day Radiopharmaceutical Dose (mCi) Administration Site Administered by Rest: Tc-99m 10.8 IV Dede Gould [employer]INE [employer] OPERATOR Sestamibi Stress:Tc-99m 32.8 IV Dede Kuhngle, BRINE WELL OPERATOR Sestamibi Rest: 05-Jan-2025 60 Discovery 630 Stress: 05-Jan-2025 30 Discovery 630 0.4mg Lexiscan. Images obtained in supine and prone position. SPECT RESULTS Technical Quality: Good Raw Data Analysis: Normal Image Corrections: No attenuation or motion correction applied Summed Stress Score: 7 Summed Rest Score: 4 Summed Difference Score: 5 PERFUSION FINDINGS There is a medium sized, partially reversible perfusion defect seen in the inferolateral and inferior wall. This is consistent with medium sized area of prior infarct with medium sized area of min-infarct ischemia in these territories. FUNCTIONAL RESULTS (calculated via Gated SPECT) Stress Image LV EF (%): 55 Stress EDV (mL):154 TID: 1.32 Stress ESV (mL):70 FUNCTIONAL FINDINGS: There is normal left ventricular systolic function. TID ratio is elevated. IMPRESSIONS 1. Abnormal myocardial perfusion imaging with medium sized area of prior infarct with medium sized area min-infarct ischemia in inferolateral and inferior huffman. 2. LV systolic function is normal. 3. TID ratio is elevated and is 1.32. Fortino Zheng MD (Electronically Signed) Final Date: 05 January 2025 10:00 S
--- NOTE | 2025-01-05 10:58 | P.PN_ITS ---
<Statement entered by Fortino Zheng M.D - 01/06/25 12:07> Patient was cared for in conjunction with an advanced practice practitioner.? I reviewed the chart and all pertinent data including imaging, telemetry, and laboratory results.? I discussed the patient in detail with the advanced practice practitioner.? Please see? their note for progress note, testing results and agreed upon plan of care for the patient. Subjective 2 Subjective: Patient is doing well. Currently sinus rhythm rates controlled. No complaints at this time. Denies chest pain or shortness of breath. He had a stress test this morning. Vitals/I&O/Wt Last Vital Signs Temp 97.3 F L 01/05/25 06:00 Pulse 81 01/05/25 08:27 Resp 17 01/05/25 06:00 BP 143/84 01/05/25 08:27 Pulse Ox 95 01/05/25 06:00 O2 Del Method Room Air 01/05/25 04:00 01/04/25 01/05/25 01/05/25 22:59 06:59 14:59 Intake Total 1154.754 / 2569.787 Output Total 1450 / 3200 Balance -295.246 / -630.213 Weight last 48 hrs Weight 181 lb 14.102 oz Weight 185 lb 3 oz Weight 185 lb 3.013 oz Weight 190 lb Physical Exam 2 Narrative: General: No apparent distress, healthy appearing, well nourished HENMT: normoceophalic Muskuloskeletal: Full ROM Lymphatic: no lymphedema noted Respiratory: Normal respiratory effort, clear to auscultation bilaterally throughout all lung greene, no use of accessory muscles Cardio: No JVD, regular rate, regular rhythm, S1 S2 normal, no murmurs, peripheral pulses 2+ radial palpated bilaterally GI: Normal to inspection, nondistended Extremities: Full ROM, normal, normal capillary refill, no cyanosis or edema Neuro: Alert and oriented x4, no focal motor deficits Psych: Affect normal, denies suicidal ideation, mental status grossly normal Skin: No rashes or lesions noted, no wounds Data 01/05/25 04:00 01/05/25 04:00 A&P Assessment and plan (1) Chest pain: (2) Atrial fibrillation with rapid ventricular response: (3) Coronary artery disease: (4) HTN (hypertension): (5) Hyperlipidemia: Plan Stress test showed abnormal perfusion imaging with medium sized area of prior infarct with medium sized area of min-infarct ischemia in the inferolateral and inferior huffman. Normal ejection fraction seen. 3 times daily ratio was elevated at 1.32. This could be due to previous infarct in which patient required stent to the RCA. Currently he is chest pain-free. I did educate patient we could do a left heart cath tomorrow morning, but because he was asymptomatic after afib resolved, it would not be unreasonable to f/u with his established edge kitter on an outpatient basis. At this time, he would like to go home. He was educated on going to the ER immediately with chest pain or increased shortness of breath. We do recommend starting patient on Eliquis 5 BID for strok prevention. Michael Vascor is 2. Also recommend amiodarone 400 mg po BIDx 1 week, then 400 daily x1 week, then 200 daily thereafter PDMP PDMP Reviewed: Not Reviewed Attestations 2 Medical Necessity Statement*: Defer to primary Coding Level of Care Code Acute Code for Chg Fwd Diagnoses Chest pain R07.9 Atrial fibrillation with rapid ventricular response I48.91 Coronary artery disease I25.10 HTN (hypertension) I10 Hyperlipidemia E78.5
--- NOTE | 2025-01-09 14:04 | P.DS_ITS ---
Discharge Providers Date of Admission: 01/03/25 20:48 Date of Discharge: 01/05/2025 Attending Provider at Admission: Clarisse Nye MD Attending Provider at Discharge: Deirdre Schultz Diagnoses at Discharge Discharge Diagnosis (1) Chest pain: Status: Resolved (2) Atrial fibrillation with rapid ventricular response: Status: Resolved (3) Coronary artery disease: Status: Acute (4) HTN (hypertension): Status: Acute (5) Hyperlipidemia: Status: Acute Reason for Visit Reason for Visit: CP Hospital Course Hospital Course 64-year-old male with history of CAD s/p RCA stent (2003) who presented with interscapular back pain, lightheadedness, and new-onset atrial fibrillation with RVR following physical exertion at a [employer]. Initial workup showed minimally elevated troponin (18) with subsequent decrease, normal proBNP (280), and unremarkable imaging. Patient was started on amiodarone infusion with successful conversion to NSR. Patient was on amiodarone drip which was transitioned to an amiodarone taper. Also started on eliquis 5 mg BID and metoprolol ER 25 mg daily. Patient was comfortable with discharge. Stress and echo were also done which are noted below. Cardiology cleared for discharge. Physical Exam Narrative: Constitutional: Sitting up, NAD HEENT: Grossly unremarkable Resp: no use of accessory muscles, CTAB, no w/r/r Cardio: RRR, no m/r/g, or clicks. 2+ radial and DP pulses. GI: normoactive bowel sounds, non-tender, non-distended, no guarding, no rigidity, no rebound tenderness, no hepatosplenomegaly. Extremity: No clubbing, No cyanosis and No edema Neuro: Grossly unremarkable Discharge Data Studies Completed and Pending Completed Studies During Hospitalization Category Date Time Status Cardiac Stress Test MIBI [Sestamibi Stress Test Request Exams 01/05/25 08:00 Draft ] Routine XR chest 1V portable [id number] Stat Exams 01/03/25 19:17 Completed NM eric perf SPECT r/s* [id number] Routine Nuc Med 01/05/25 10:42 Completed CV. echo complete* [id number] Routine Ultrasound 01/04/25 00:10 Completed Radiology Impressions Chest X-Ray 01/03/25 19:17 IMPRESSION: No acute findings. Laboratory Results WBC 7.18 10^3/uL (3.29-11.43) 01/05/25 04:00 RBC 4.15 10^6/uL (3.85-5.65) 01/05/25 04:00 Hgb 12.80 g/dL (11.27-16.99) 01/05/25 04:00 Hct 41.0 % (37-53) 01/05/25 04:00 MCV 98.8 fl (82-101) 01/05/25 04:00 MCH 30.8 pg (27-33) 01/05/25 04:00 MCHC 31.2 g/dL (30-55) 01/05/25 04:00 RDW 13.0 % (12.1-15.1) 01/05/25 04:00 Plt Count 228 10^3/cmm (157-399) 01/05/25 04:00 MPV 10.5 fL (7.4-10.4) H 01/05/25 04:00 Neut % (Auto) 48.9 % 01/05/25 04:00 Lymph % (Auto) 37.5 % 01/05/25 04:00 [place] % (Auto) 9.1 % 01/05/25 04:00 Eos % (Auto) 2.8 % 01/05/25 04:00 Baso % (Auto) 1.4 % 01/05/25 04:00 Neut # (Auto) 3.52 10^3/uL (1.8-7.7) 01/05/25 04:00 Lymph # (Auto) 2.7 10^3/uL (0.8-4.8) 01/05/25 04:00 [place] # (Auto) 0.7 10^3/uL (0.2-0.9) 01/05/25 04:00 Eos # (Auto) 0.2 10^3/uL (0.0-0.8) 01/05/25 04:00 Baso # (Auto) 0.1 10^3/uL (0.0-0.1) 01/05/25 04:00 Nucleated RBC % (auto) 0 % 01/05/25 04:00 Nucleated RBCs # 0.0 /100WBC 01/05/25 04:00 PT 14.00 SECONDS (12.1-14.9) 01/04/25 03:21 INR 1.01 (0.8-1.2) 01/04/25 03:21 APTT 34.5 SECONDS (23.9-36.7) 01/04/25 03:21 Sodium 139 mmol/L (136-145) 01/05/25 04:00 Potassium 4.2 mmol/L (3.5-5.1) 01/05/25 04:00 Chloride 105 mmol/L (98-107) 01/05/25 04:00 Carbon Dioxide 23 mmol/L (22-29) 01/05/25 04:00 Anion Gap 15.2 (5-19) 01/05/25 04:00 BUN 12 mg/dL (8-23) 01/05/25 04:00 Creatinine 0.8 mg/dL (0.7-1.2) 01/05/25 04:00 GFR Calculation 97.6 mL/min (90-130) 01/05/25 04:00 Glucose 102 mg/dL (65-115) 01/05/25 04:00 Estimat Average Glucose 123 01/04/25 03:21 Hemoglobin A1c 5.9 % (4.0-6.0) 01/04/25 03:21 Calculated Osmolality 288 mOsm/kg (285-295) 01/05/25 04:00 Calcium 8.6 mg/dL (8.5-10.5) 01/05/25 04:00 Magnesium 2.2 mg/dL (1.7-2.3) 01/05/25 04:00 Total Bilirubin 0.4 mg/dL (0.15-1.2) 01/05/25 04:00 AST 16 U/L (0-40) 01/05/25 04:00 ALT 14 U/L (0-41) 01/05/25 04:00 Alkaline Phosphatase 55 U/L (40-130) 01/05/25 04:00 Creatine Kinase 246 U/L (39-308) 01/04/25 03:21 Troponin T 5th Gen ng/L 19 ng/L (0-15) H 01/04/25 07:00 Troponin T Baseline 18 ng/L (0-15) H 01/03/25 19:19 Troponin T 120 Minute 17.08 ng/L (0-15) H 01/03/25 20:45 Delta Troponin T -0.92 ABS# (0-10) L 01/03/25 20:45 Troponin T Hi Sens 6Hr 20.70 ng/L (0-15) H 01/04/25 00:59 Troponin T Hi Sens 6Hr Delta 2.70 ng/L (0-12) 01/04/25 00:59 NT-Pro-B Natriuret Pep 280 pg/mL (0-125) H 01/03/25 19:19 Total Protein 6.3 g/dL (6.6-8.7) L 01/05/25 04:00 Albumin 3.7 g/dL (3.5-5.2) 01/05/25 04:00 Globulin 2.6 g/dL (1.3-4.6) 01/05/25 04:00 Triglycerides 106 mg/dL (0-150) 01/04/25 03:21 Triglycerides Cancelled 01/04/25 03:21 Cholesterol 192 mg/dL (0-200) 01/04/25 03:21 Cholesterol Cancelled 01/04/25 03:21 LDL Cholesterol, Calc 121 mg/dL (50-129) 01/04/25 03:21 LDL Cholesterol, Calc Cancelled 01/04/25 03:21 HDL Cholesterol 50 mg/dL (60-100) L 01/04/25 03:21 HDL Cholesterol Cancelled 01/04/25 03:21 LDL/HDL Ratio 2.42 RATIO (0.00-3.22) 01/04/25 03:21 LDL/HDL Ratio Cancelled 01/04/25 03:21 Cholesterol/HDL Ratio 3.84 mg/dL (1.0-5.00) 01/04/25 03:21 Cholesterol/HDL Ratio Cancelled 01/04/25 03:21 TSH 2.26 uIU/mL (0.27-4.20) 01/04/25 03:21 TSH Cancelled 01/04/25 03:21 Urine Color Yellow (Yellow) 01/03/25 20:13 Urine Appearance Clear (CLEAR) 01/03/25 20:13 Urine pH 7 (5-7) 01/03/25 20:13 Ur Specific [place] 1.005 (1.005-1.030) 01/03/25 20:13 Urine Protein Trace (Negative) 01/03/25 20:13 Urine Glucose (UA) Norm (Normal) 01/03/25 20:13 Urine Ketones Negative (Negative) 01/03/25 20:13 Urine Blood Neg (Negative) 01/03/25 20:13 Urine Nitrate Negative (Negative) 01/03/25 20:13 Urine Bilirubin Neg (Negative) 01/03/25 20:13 Urine Urobilinogen Norm mg/dL (Negative) 01/03/25 20:13 Ur Leukocyte Esterase Negative (Negative) 01/03/25 20:13 Urine RBC 0-2 /hpf (0-2) 01/03/25 20:13 Urine WBC 0-5 /hpf (0-5) 01/03/25 20:13 Ur Squamous Epith Cells 0-5 /hpf (0-5) 01/03/25 20:13 Amorphous Sediment Not Reportable 01/03/25 20:13 Urine Bacteria None seen /hpf (NONE) 01/03/25 20:13 Hyaline Casts 0-4 /lpf H 01/03/25 20:13 Urine Opiates Screen Negative ng/mL (Negative) 01/03/25 20:13 Ur Barbiturates Screen Negative ng/mL (Negative) 01/03/25 20:13 Ur Phencyclidine Scrn Negative ng/mL (Negative) 01/03/25 20:13 Ur Amphetamines Screen Negative ng/mL (Negative) 01/03/25 20:13 U Benzodiazepines Scrn Negative ng/mL (Negative) 01/03/25 20:13 Urine Cocaine Screen Negative ng/mL (Negative) 01/03/25 20:13 U Marijuana (THC) Screen Negative ng/mL (Negative) 01/03/25 20:13 Vitals Last Vital Signs Temp 98.0 F 01/05/25 13:03 Pulse 77 01/05/25 13:03 Resp 20 H 01/05/25 13:03 BP 137/82 01/05/25 13:03 Pulse Ox 98 01/05/25 13:03 O2 Del Method Room Air 01/05/25 04:00 Discharge Plan Discharge Patient Disposition: Home Condition: Stable Prescriptions: New amiodarone [Pacerone] 200 mg Tablet See Taper PO BID Qty: 60 0RF Taper: amiodarone 400bid to 200daily 400 mg Twice A Day for 7 Days and 0 Hour 200 mg Twice A Day for 7 Days and 0 Hour 200 mg Daily for 30 Days and 0 Hour lisinopril 10 mg Tablet 10 mg PO DAILY Qty: 30 0RF metoprolol succinate 25 mg Tablet Extended Release 24 Hr 25 mg PO DAILY Qty: 30 0RF Eliquis 5 mg tablet 5 mg PO BID Qty: 60 0RF Continued aspirin 81 mg Tablet 162 mg PO DAILY cholecalciferol (vitamin D3) [Vitamin D3] 25 mcg (1,000 unit) Tablet 1,000 unit PO DAILY Discontinued metoprolol succinate 50 mg tablet extended release 24 hr 50 mg PO 1XD lisinopril 20 mg tablet 20 mg PO 1XD Discharge Orders: Discharge Order (Routine); Ordered 01/05/25 Ordered By: Deirdre Schultz Referrals: Fortino Zheng M.D [Physician] - 2 weeks (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 seeing 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 bank manager so this appt will not be needed) Discharge Diet: Advance as tolerated and Cardiac Discharge Activity: Increase activity as tolerated Patient Instructions: Metoprolol (By mouth), Lisinopril (By mouth), Amiodarone (By mouth), Apixaban (By mouth), A-fib (Atrial Fibrillation) (DC), Heart Healthy Diet (DC), Chronic Hypertension (DC), Hyperlipidemia (DC), Opioid Safety Activity Restrictions/Additional Instructions: you have a follow up appt at Dr Penny office with Anuradha on January 23 2025 at 9am Discharge Attestations Time Spent in Discharge Care*: greater than 30 min Status at Discharge: Cognitive status at discharge: cognitively intact , Behavioral status at discharge: cooperative , Functional status at discharge: independent ambulation , Overall status at discharge: patient is back to baseline Quality Metrics Clinical Quality Measures [ No reported AMI, CVA or VTE this stay] Coding Level of Care Code Acute Code for Chg Fwd Diagnoses Chest pain R07.9 Atrial fibrillation with rapid ventricular response I48.91 Coronary artery disease I25.10 HTN (hypertension) I10 Hyperlipidemia E78.5
== END 2025-01-05 13:05 | disposition home or self-care (01) | DRG 309 ==
LOC: ER 21:04 → ICU 21:35
PROVIDERS: Admitting Provider Internal Medicine; Emergency Provider Emergency Medicine; Visit Provider Hospitalist
DX: I48.91 Unspecified atrial fibrillation (principal); I24.9 Acute ischemic heart disease, unspecified; I25.10 Atherosclerotic heart disease of native coronary artery without angina pectoris; I10 Essential (primary) hypertension; E78.5 Hyperlipidemia, unspecified; E86.0 Dehydration; I45.10 Unspecified right bundle-branch block; G89.29 Other chronic pain; M54.9 Dorsalgia, unspecified; Z95.5 Presence of coronary angioplasty implant and graft; Z79.82 Long term (current) use of aspirin
CPT/HCPCS: 36415; 71045; 78452; 80053; 80061; 80306; 81001; 82550; 83036; 83735; 83880; 84443; 84484; 85025; 85610; 85730; 93005; 93017; 93306; 94664; 96365; 96366; 96372; 96375; 96376; 99285; A4222; A9500; J0283; J1650; J2785; J7030; J9999